=== PATIENT | male | born 1955 | race Caucasian/White ===

== ENCOUNTER → 2016-08-20 | Outpatient (CLI) | payer BC ==
[~2016-08-20] MED LIST: DIPH-416 PO; HYDR-5688 PO; HYSSR375 PO; IBUP-1050 PO; MIRT30TA2 PO; NAPR1TAB9 PO
[2016-08-20 15:39] LABS: HEMATOCRIT 43.6 % (42-52); MEAN CELL VOLUME 90.3 fL (80-100); MEAN CORPUSCULAR HEMOGLOBIN 30.4 pg (25-34); MEAN CORPUSCULAR HGB CONC 33.7 g/dl (32-36); MEAN PLATELET VOLUME 10.4 fL (7.4-10.4); PLATELET COUNT 261 K/uL (130-400); RED BLOOD COUNT 4.83 M/uL (4.7-6.1); WHITE BLOOD COUNT 6.75 K/uL (4.8-10.8)
[2016-08-20 15:56] LABS: ALT/SGPT 27 U/L (12-78); BLOOD UREA NITROGEN 14 mg/dl (7-18); BUN/CREATININE RATIO 11.6 (10-20); CARBON DIOXIDE 28 mmol/L (21-32); CHLORIDE 108 mmol/L (98-107); GLUCOSE 88 mg/dl (70-99); POTASSIUM 3.8 mmol/L (3.5-5.1); SODIUM 145 mmol/L (136-145)
[2016-08-20 16:06] LABS: ALB/GLOB RATIO 1.2 (0.9-2); ALKALINE PHOSPHATASE 56 U/L (45-117); AST/SGOT 17 U/L (15-37)
== END | disposition home or self-care (01) ==
LOC: C.LAB 15:14
PROVIDERS: ATTEND Family Medicine
DX: R63.4 Abnormal weight loss (principal)

== ENCOUNTER 2016-10-09 10:49 | Emergency (ER) | payer BC ==
[~2016-10-09] VITALS: Ht 177.8 cm; Wt 105.2 kg
[2016-10-09 11:07] VITALS: TEMP 37.2; Ht 177.8 cm; Wt 105.2 kg
[2016-10-09] MEDS ORDERED: DIPH-416 PO (11:57)
[2016-10-09] MEDS ORDERED: MIRT30TA2 PO (11:57)
[2016-10-09] MEDS ORDERED: HYSSR375 PO (11:57)
[2016-10-09] MEDS ORDERED: NAPR1TAB9 PO (12:00)
[2016-10-09] MEDS ORDERED: IBUP-1050 PO (12:00)
--- NOTE | 2016-10-09 12:37 | DIAGNOSTIC IMAGING REPORT ---
RIGHT KNEE 3 VIEWS CLINICAL HISTORY: Right knee pain Right pain COMPARISON: None. DISCUSSION: The bones and joint spaces appear intact. There is no evidence of fracture, dislocation or bony disease. There is no evidence for soft tissue swelling. IMPRESSION: Negative study. Electronically signed by: Johnathon Lynn M.D. 10/09/2016 12:36 PM Dictated Date/Time: 10/09/2016 12:35 PM
--- NOTE | 2016-10-09 13:48 | DIAGNOSTIC IMAGING REPORT ---
Venous Doppler right leg RIGHT VENOUS DOPP LOWER EXT UNILAT CLINICAL HISTORY: Right knee pain Right pain TECHNIQUE: Ultrasound COMPARISON STUDY: None FINDINGS: Normal study IMPRESSION: Normal study Electronically signed by: Johnathon Lynn M.D. 10/09/2016 1:46 PM Dictated Date/Time: 10/09/2016 1:46 PM
[2016-10-09] MEDS ORDERED: HYDR-5688 PO (14:01)
[2016-10-09 14:44] VITALS: BP 173/98; PULSE 78; O2SAT 98
--- NOTE | 2016-10-09 19:15 | EMERGENCY ROOM VISIT NOTE ---
History First contact with patient: 11:27 Chief Complaint: KNEEPAIN Stated Complaint: RIGHT KNEE INJURY STEPPING OFF A STEP History of Present Illness The patient is a 61 year old male who presents to the Emergency Room with complaints of right knee pain for the past week. The patient states that he has had slowly progressive pain in his right knee without distinct injury or trauma. The patient does not have chronic knee pain. He presents to the emergency department today, because he was stepping down a step yesterday, and his knee gave out. The patient has been able to ambulate, and is without numbness or paresthesias. He does not have back or hip pain. No ankle pain. Ibuprofen does minimally improved his symptoms. He has not had fever or chills and rates his current discomfort a 4/10 and 8/10 with ambulation. He does not have recent travel history. No history of DVT or PE. Review of Systems More than 10 systems were reviewed and otherwise negative with the exception of history of present illness. Past Medical/Surgical History No pertinent chronic medical disease Family History No pertinent family history Social History Smoking Status: Never Smoker Housing Status: lives with family Occupation Status: employed Current/Historical Medications Scheduled Hyoscyamine Sulfate (Hyoscyamine Sulfate ER), 1 TAB PO QAM Mirtazapine Soltab (Remeron Soltab), 30 MG PO HS Scheduled PRN Diphenoxylate/Atropine (Lomotil), 1 TAB PO DAILY PRN for Diarrhea Hydrocodone/Acetaminophen 5MG/325MG ([place] 5MG/325MG), 1-2 TABLET PO Q6 PRN for Pain Ibuprofen (Advil), 200-600 MG PO Q4H PRN for Pain Naproxen (Aleve), 220 MG PO Q12 PRN for Pain Allergies Coded Allergies: Penicillin G (Unverified Allergy, Severe, RASH, 10/09/16) Physical Exam Vital Signs Date Time Temp Pulse Resp B/P Pulse Ox O2 Delivery O2 Flow Rate FiO2 10/09/16 14:44 78 18 173/98 98 10/09/16 11:07 37.2 72 18 167/105 98 Room Air Pain Rating (0-10): 2.0 Physical Exam VITALS: Vitals are noted on the nurse's note and reviewed by myself. Vital signs stable. GENERAL: Well-developed, well-nourished, white male, who is in no acute distress and resting comfortably. Patient is cooperative with the examination. HEAD: Normocephalic atraumatic. HEART: Regular rate and rhythm without murmurs gallops or rubs. LUNGS: Clear to auscultation bilaterally without wheezes, rales or rhonchi. No retractions or accessory muscle use. MUSCULOSKELETAL: No muscle atrophy, erythema, or edema noted. Tenderness appreciated over the posterior aspect of the right knee. Negative anterior posterior drawer. No laxity with varus and valgus maneuvers. Negative Homans sign. No tenderness of the right hip or right ankle. Neurovascular status is intact distally. NEURO: Patient was alert and oriented to person place and time. CN II through XII grossly intact. Deep tendon reflexes 2+ throughout. Medical Decision & Procedures ER Provider Diagnostic Interpretation: RIGHT KNEE 3 VIEWS CLINICAL HISTORY: Right knee pain Right pain COMPARISON: None. DISCUSSION: The bones and joint spaces appear intact. There is no evidence of fracture, dislocation or bony disease. There is no evidence for soft tissue swelling. IMPRESSION: Negative study. Venous Doppler right leg RIGHT VENOUS DOPP LOWER EXT UNILAT CLINICAL HISTORY: Right knee pain Right pain TECHNIQUE: Ultrasound COMPARISON STUDY: None FINDINGS: Normal study IMPRESSION: Normal study ED Course Physical exam and history were performed. Nursing notes and EMR were reviewed. Patient appears to have knee pain that is atraumatic in nature that started one week ago. He now has pain after stepping down from a step yesterday. I discussed options of care with the patient, and x-ray and ultrasound were ordered. The x-ray does not show acute fracture or dislocation. Ultrasound is without evidence of DVT. Overall the patient does appear stable for discharge home. I suspect his symptoms are musculoskeletal in nature. His family has followed with Dr. Pearson of orthopedics in the past, and I will refer the patient back to their service for further care and management. The patient will be given crutches and he was placed in a knee immobilizer. The patient was educated on conservative measures and otherwise invited back to the ER with any new, worsening, or concerning symptoms. The chart was completed utilizing [employer] Voice Recognition Software. Grammatical errors, random word insertions, pronoun errors, and incomplete sentences are an occasional consequence of this system due to software limitations, ambient noise, and hardware issues. Any formal questions or concerns about the content, text, or information contained within the body of this dictation should be directly addressed to the provider for clarification. . Medical Decision Differential diagnosis includes, but is not limited to: DVT, sprain, strain, fracture, dislocation, subluxation, contusion, and others Impression Primary Impression: Right knee pain Departure Information Dispostion Home / Self-Care Condition GOOD Prescriptions Hydrocodone/Acetaminophen 5MG/325MG ([place] 5MG/325MG) Tab 1-2 TABLET PO Q6 Y for Pain, #15 TAB For Initial Treatment Prov: Dominic Pritchard PA-C 10/09/16 Referrals Dominic Pearson M.D. Forms HOME CARE DOCUMENTATION FORM, Work Instructions, Additional Instructions: Patient was seen and evaluated today in the emergency department fo medical care. May return to work on 10/14/2016. Please excuse. IMPORTANT VISIT INFORMATION Patient Instructions My [facility] Additional Instructions You were seen and evaluated today on an emergency basis only. This is not a substitute for, or an effort to provide, complete comprehensive medical care. It is not possible to recognize and treat all injuries or illnesses in a single emergency department visit. For this reason it is recommended that you followup with [facility] in the next 1-2 weeks if symptoms persist. For baseline pain relief you may alternate ibuprofen and acetaminophen every 4 hours for pain control. Take 600 mg ibuprofen (Advil) and then 4 hours later take 1000 mg acetaminophen (Tylenol). Do not take more than 3000 mg acetaminophen in a single day. [place] (hydrocodone/acetaminophen) 5/325 mg every 6 hours as needed for worsening breakthrough pain. Do not drink or drive on [place]. This medication will likely make you tired. Do not take [place] and Tylenol at the same time as both contain acetaminophen. [place] may cause constipation. You may wish to take an [id number] stool softener like Colace if this occurs. Wear your knee immobilizer and use your crutches for the next 4-5 days. Afterwards please slowly activity. If you have persistent pain please follow- up with orthopedics. You are welcome to return to the emergency department anytime with new, worsening, or concerning symptoms. Work Instructions Additional Work Instructions: Patient was seen and evaluated today in the emergency department for medical care. May return to work on 10/14/2016. Please excuse.
== END 2016-10-09 14:44 | disposition home or self-care (01) ==
LOC: C.EDB 10:56 → C.EDD 14:44
DX: M25.561 Pain in right knee (principal); Z79.899 Other long term (current) drug therapy

== ENCOUNTER → 2017-12-12 | Outpatient (CLI) | payer OTHER ==
[~2017-12-12] MED LIST changes: -HYDR-5688 PO
[2017-12-12 12:18] LABS: HEMATOCRIT 43.6 % (42-52); HEMOGLOBIN 14.7 g/dL (14.0-18.0); MEAN CELL VOLUME 89.3 fL (80-100); MEAN CORPUSCULAR HEMOGLOBIN 30.1 pg (25-34); MEAN CORPUSCULAR HGB CONC 33.7 g/dl (32-36); MEAN PLATELET VOLUME 11.1 fL (7.4-10.4); PLATELET COUNT 243 K/uL (130-400); RED CELL DISTRIBUTION WIDTH CV 13.3 % (11.5-14.5); RED CELL DISTRIBUTION WIDTH SD 43.5 fL (36.4-46.3); WHITE BLOOD COUNT 6.14 K/uL (4.8-10.8)
[2017-12-12 12:46] LABS: ALKALINE PHOSPHATASE 60 U/L (45-117); ALT/SGPT 28 U/L (12-78); AST/SGOT 23 U/L (15-37); BLOOD UREA NITROGEN 16 mg/dl (7-18); CALCIUM 8.4 mg/dl (8.5-10.1); CARBON DIOXIDE 25 mmol/L (21-32); CHOLESTEROL 158 mg/dl (0-200); GLUCOSE 114 mg/dl (70-99); LDL CHOLESTEROL CALCULATED 92 mg/dl; POTASSIUM 3.7 mmol/L (3.5-5.1); SODIUM 139 mmol/L (136-145); TOTAL PROTEIN 7.6 gm/dl (6.4-8.2)
[2017-12-12 13:09] LABS: HEMOGLOBIN A1C 6.3 % (4.5-5.6)
== END | disposition home or self-care (01) ==
LOC: C.LABBFT 08:18
PROVIDERS: ATTEND Family Medicine
DX: Z11.59 Encounter for screening for other viral diseases (principal); K58.9 Irritable bowel syndrome, unspecified